=== PATIENT | female | born 1960 | race Caucasian/White ===

== ENCOUNTER 2016-09-26 11:27 | Emergency (ER) | payer OTHER ==
[~2016-09-26] VITALS: Ht 157.5 cm; Wt 85.3 kg
--- NOTE | 2016-09-26 13:48 | ED GENERAL ADULT ---
History of Present Illness General Chief Complaint: General Adult Stated Complaint: PT HEADACHE ,EVERY JOINT IN HER BODY HURTS [id number] Source: patient Exam Limitations: no limitations Vital Signs & Intake/Output Vital Signs & Intake/Output Vital Signs Date Time Temp Pulse Resp B/P Pulse O2 O2 Flow FiO2 Ox Delivery Rate 09/26 1505 96.3 89 24 144/80 96 Room Air 09/26 1154 97.6 86 20 134/77 97 Room Air Allergies Coded Allergies: turkey (FLU LIKE SYMPTOMS FOR DAYS 09/26/16) Reconcile Medications Albuterol Sulfate (Proair Hfa) 90 MCG HFA.AER.AD 1-2 PUF INH Q4-6 PRN PRN COPD (Reported) Budesonide/Formoterol Fumarate (Symbicort 160-4.5 Mcg Inhaler) 160 MCG-4.5 MCG/ ACTUATION HFA.AER.AD 2 PUF INH BID COPD (Reported) Cetirizine HCl (Zyrtec) 10 MG TABLET 1 TAB PO DAILY ALLERGIES (Reported) Liraglutide (Victoza 3-Vu) 0.6 MG/0.1 ML (18 MG/3 ML) PEN.INJCTR 1.8 MG SC DAILY DM (Reported) Metformin HCl 1,000 MG TABLET 1 TAB PO BID DM (Reported) Montelukast Sodium 10 MG TABLET 1 TAB PO QAM ALLERGIES (Reported) Moxifloxacin HCl 400 MG TABLET 1 TAB PO DAILY ANTIBIOTIC (Reported) Multivitamin (Multi-Day Vitamins) 1 EACH TABLET 1 TAB PO DAILY SUPPLEMENT ( Reported) Simvastatin (Simvastatin*) 10 MG TABLET 1 TAB PO QHS CHOLESTEROL (Reported) Tiotropium [place] (Spiriva Respimat) 2.5 MCG/ACTUATION MIST.INHAL 1 PUFF INH DAILY COPD (Reported) Tramadol HCl 50 MG TABLET 1 TAB PO BID PRN PAIN (Reported) Triage Note: TRIAGE: PT TO ER C/C HEADACHE PAIN AND JOINT PAIN X "SEVERAL DAYS". CONSTANT SINCE ONSET. ALSO COMPLAINS OF INTERMITTENT PAIN BETWEEN SHOULDER BLADES AND FEELING TIRED. HAS HAD PRODUCTIVE COUGH WITH GOLDISH COLORED PHLEGM. Triage Nurses Notes Reviewed? yes HPI: Patient is a 56 year old female presents complaining of pulsatile headache, neck pain, diarrhea. Symptoms for approximately one week. Approximately 5 episodes of diarrhea daily. Patient reports any time she eats she has associated diarrhea. Patient has been drinking fluids. Patient was started on Augmentin on September 12 for sinusitis. Patient reports that her primary care provider switched the antibiotic to moxifloxacin approximately one week ago due to the development of diarrhea. Associated generalized weakness. Headache is currently approximately 5 out of 10, generalized weakness/fatigue is severe. Denies fevers Past History Travel History Traveled to [place] past 21 day No Medical History Any Pertinent Medical History? see below for history Neurological: NONE EENT: NONE Cardiovascular: NONE Respiratory: COPD Gastrointestinal: NONE Hepatic: NONE Renal: NONE Musculoskeletal: osteoarthritis Psychiatric: NONE Endocrine: diabetes Blood Disorders: NONE Cancer(s): NONE KENNEL HELPER/Reproductive: NONE Surgical History Surgical History: non-contributory Psychosocial History What is your primary language Peruvian Tobacco Use: Current Daily Use Daily Tobacco Use Amount/Type: => 5 Cigarettes daily ETOH Use: denies use Illicit Drug Use: denies illicit drug use Family History Hx Contributory? No Review of Systems Review of Systems Constitutional: Reports: malaise, weakness. Denies: chills, fever. EENTM: Reports: nasal congestion. Respiratory: Reports: cough, sputum production. Denies: short of breath. Cardiovascular: Denies: chest pain. GI: Reports: diarrhea. Denies: abdominal pain, vomiting. Genitourinary: Reports: no symptoms. Musculoskeletal: Reports: no symptoms. Skin: Reports: no symptoms. Neurological/Psychological: Reports: see HPI. Hematologic/Endocrine: Reports: no symptoms. Immunologic/Allergic: Reports: no symptoms. Physical Exam Physical Exam General Appearance: well developed/nourished, alert, awake Head: atraumatic, normal appearance Eyes: Bilateral: normal appearance, PERRL, EOMI, other (grossly normal fundoscope exam ). Ears, Nose, Throat: normal pharynx, normal ENT inspection, hearing grossly normal Neck: normal inspection, supple, full range of motion Respiratory: normal breath sounds, chest non-tender, no respiratory distress, lungs clear Cardiovascular: regular rate/rhythm Gastrointestinal: soft, non-tender Back: normal inspection, normal range of motion Extremities: normal inspection, normal capillary refill, normal range of motion, no edema Neurologic/Psych: no motor/sensory deficits, awake, alert, oriented x 3, normal gait, normal mood/affect, wash test checker II-XII nml as tested Skin: intact, normal color, warm/dry Lymphatic: no anterior cervical jah Core Measures ACS in differential dx? No CVA/TIA Diagnosis: No Severe Sepsis Present: No Septic Shock Present: No Progress Differential Diagnoses I considered the following diagnoses in my evaluation of the patient: dehydration, tension headache, migraine, intracranial bleed, c. diff infection, colitis, diverticulitis, electrolyte abnormality, sinusitis, pneumonia, bronchitis, viral syndrome. Plan of Care: Orders Procedure Date/time Status CULTURE,STOOL 09/27 1419 Active C.DIFFICILE 09/27 1419 Active COMPREHENSIVE METABOLIC PANEL 09/27 1419 Complete CBC WITHOUT DIFFERENTIAL 09/27 1419 Complete Laboratory Tests 09/26/16 1435: Anion Gap 12, Estimated GFR > 60, BUN/Creatinine Ratio 26.7 H, Glucose 127 H, Calcium 10.5 H, Total Bilirubin 0.4, AST 18, ALT 43, Alkaline Phosphatase 100, Total Protein 6.9, Albumin 4.3, Globulin 2.6, Albumin/Globulin Ratio 1.7, CBC w Diff NO MAN DIFF REQ, RBC 4.49, MCV 89.2, MCH 29.7, RDW 15.1 H, MPV 7.3 L, Gran % 68.2, Lymphocytes % 24.2, Monocytes % 5.6, Eosinophils % 1.8, Basophils % 0.2, Absolute Granulocytes 5.6, Absolute Lymphocytes 2.0, Absolute Monocytes 0.5 , Absolute Eosinophils 0.1, Absolute Basophils 0, PUBS MCHC 33.3 Microbiology 09/27 1419 STOOL: Clostridium difficile Toxin A & B - ORD 09/27 1419 STOOL: Stool Culture - ORD No episodes of diarrhea in the emergency department. Patient afebrile, abdomen soft, nontender. WBC count normal. Lower suspicion C. Diff infection. Results of labs discussed with patient. Appears stable fori discharge and outpatient follow up. (ANUJ LUNA,DONELL) Initial ED EKG: none Departure Departure Disposition: HOME OR SELF CARE Condition: Stable Clinical Impression Primary Impression: Dehydration Secondary Impressions: Diarrhea, Headache Referrals: FARHAT BAUER APRN (PCP/Family) Additional Instructions: Increase your fluid intake. Follow up with your primary care provider this week for further evaluation. Return to the ER if unable to stay hydrated or worsening of symptoms. Departure Forms: Customer Survey General Discharge Information Critical Care Note Critical Care Note Critical Care Time: non-applicable
[2016-09-26 14:41] LABS: ABSOLUTE BASOPHIL COUNT 0 /CUMM (0.0-0.2); ABSOLUTE EOSINOPHIL COUNT 0.1 /CUMM (0.0-0.7); ABSOLUTE GRANULOCYTE CT 5.6 /CUMM (1.4-6.5); ABSOLUTE MONOCYTE COUNT 0.5 /CUMM (0.10-0.60); BASOPHIL % 0.2 % (0.0-2.0); EOSINOPHIL % 1.8 % (0-5); GRANULOCYTE % 68.2 % (42.2-75.2); MEAN CORPUSCULAR HGB 29.7 PG (27.0-31.0); MEAN CORPUSCULAR HGB CONC 33.3 G/DL (33.0-37.0); MEAN CORPUSCULAR VOLUME 89.2 FL (81.0-99.0); MEAN PLATELET VOLUME 7.3 FL (7.4-10.4); PLATELET COUNT 303 /CUMM (130-400); RBC DISTRIBUTION WIDTH 15.1 % (11.5-14.5); RED BLOOD CELL CT 4.49 /CUMM (4.20-5.40); WHITE BLOOD CELL COUNT 8.2 /CUMM (4.8-10.8)
[2016-09-26 15:05] VITALS: BP 144/80
[2016-09-26] MEDS ORDERED: METFORMIN HCL1000 M1 PO (15:35)
[2016-09-26] MEDS ORDERED: SIMVASTATIN10 M1 PO (15:36)
[2016-09-26] MEDS ORDERED: MONTELUKAST SOD10 M1 PO (15:36)
[2016-09-26] MEDS ORDERED: ZYRTEC10 M3 PO (15:36)
[2016-09-26] MEDS ORDERED: MOXIFLOXACIN H400 M2 PO (15:36)
[2016-09-26] MEDS ORDERED: VICTOZA 3-0.6 MG/0.1 SC (15:37)
[2016-09-26] MEDS ORDERED: MULTI-DAY VITA1 EACH PO (15:37)
[2016-09-26] MEDS ORDERED: SYMBICORT 16010.2 GM INH (15:37)
[2016-09-26] MEDS ORDERED: SPIRIVA RESPIMAT4 GM INH (15:38)
[2016-09-26] MEDS ORDERED: TRAMADOL HCL50 M1 PO (15:38)
[2016-09-26] MEDS ORDERED: PROAIR HFA8.5 GM INH (15:39)
== END 2016-09-26 17:28 ==
LOC: ERH 11:27
PROVIDERS: Physician Assistant
DX: E86.0 Dehydration (principal)
CPT/HCPCS: 87045; 96374; J1885

== ENCOUNTER 2016-09-29 08:03 | Emergency (ER) | payer OTHER ==
[~2016-09-29] VITALS: Ht 157.5 cm; Wt 81.6 kg
[~2016-09-29 08:03] MED LIST: METFORMIN HCL1000 M1 PO; MONTELUKAST SOD10 M1 PO; MOXIFLOXACIN H400 M2 PO; MULTI-DAY VITA1 EACH PO; PROAIR HFA8.5 GM INH; SIMVASTATIN10 M1 PO; SPIRIVA RESPIMAT4 GM INH; SYMBICORT 16010.2 GM INH; TRAMADOL HCL50 M1 PO; VICTOZA 3-0.6 MG/0.1 SC; ZYRTEC10 M3 PO
[2016-09-29 10:07] LABS: ABSOLUTE BASOPHIL COUNT 0 /CUMM (0.0-0.2); ABSOLUTE EOSINOPHIL COUNT 0.2 /CUMM (0.0-0.7); ABSOLUTE GRANULOCYTE CT 5.7 /CUMM (1.4-6.5); ABSOLUTE LYMPH COUNT 2.1 /CUMM (1.2-3.4); ABSOLUTE MONOCYTE COUNT 0.5 /CUMM (0.10-0.60); BASOPHIL % 0.5 % (0.0-2.0); EOSINOPHIL % 1.8 % (0-5); HEMATOCRIT 42.7 % (37-47); MEAN CORPUSCULAR HGB CONC 33.9 G/DL (33.0-37.0); MEAN CORPUSCULAR VOLUME 88.3 FL (81.0-99.0); MEAN PLATELET VOLUME 7.3 FL (7.4-10.4); PLATELET COUNT 345 /CUMM (130-400); RBC DISTRIBUTION WIDTH 14.6 % (11.5-14.5); RED BLOOD CELL CT 4.83 /CUMM (4.20-5.40); WHITE BLOOD CELL COUNT 8.5 /CUMM (4.8-10.8)
--- NOTE | 2016-09-29 10:53 | CT SCAN REPORT ---
EXAMINATION: CT ABDOMEN AND PELVIS WITH CONTRAST CLINICAL INFORMATION: 56-year-old female with flulike symptoms, diarrhea and left lower quadrant abdominal pain. Evaluate for diverticulitis or colitis. COMPARISON: CT of abdomen pelvis from 07/18/2016. TECHNIQUE: Multidetector volumetric imaging was performed of the abdomen and pelvis after the IV administration of 95 mL of of Optiray 320 intravenous contrast. Sagittal and coronal reformatted images were obtained on the technologist's workstation. DLP: 691 mGy-cm FINDINGS: LUNG BASES: The visualized lung bases are unremarkable. LIVER, GALLBLADDER, AND BILIARY TREE: Again noted is hepatomegaly and diffuse hepatic steatosis. Gallbladder is surgically absent. No intrahepatic or extrahepatic bile duct dilatation. PANCREAS: Unremarkable. SPLEEN: Unremarkable. ADRENAL GLANDS: Stable 1.3 cm wide nodular focus of the left adrenal gland, characterized as lipid rich adenoma on noncontrast images of 07/18/2016. KIDNEYS AND URETERS: Kidneys are normal in size and enhance symmetrically. There is a 0.7 cm angiomyolipoma at the upper pole of the right kidney. Otherwise, kidneys are unremarkable. No nephrolithiasis or hydroureteronephrosis. BLADDER: Unremarkable. GASTROINTESTINAL TRACT: Stomach is normal. Bowel loops are normal in caliber. No evidence of bowel wall edema. No pericolonic fat stranding. The appendix is not identified. There are no inflammatory changes within the right lower quadrant. No ascites or pneumoperitoneum. ABDOMINAL WALL: Small, 1 cm wide fat-containing hernia of the umbilicus is unchanged. LYMPH NODES: No pathologic sized lymph nodes within the abdomen or pelvis. VASCULAR: Atherosclerotic calcification of the abdominal aorta without aneurysm. The celiac trunk, SMA, CLAUDIA and renal arteries are widely patent. No retroperitoneal hematoma. PELVIC VISCERA: The anteflexed uterus is normal in size. 1.2 cm nearly isodense intramural leiomyoma of the right uterine body is suspected. No adnexal mass. Tubal ligation clips/rings are noted. No pelvic free fluid. OSSEOUS STRUCTURES: At L5-S1, there is facet osteoarthritis (left worse than right), disc bulge and 0.3 cm anterolisthesis of L5 on S1. No suspicious bone lesions. Bone island is present within the left pubis. IMPRESSION: 1. No acute findings along the gastrointestinal tract. No evidence of enteritis or colitis. 2. Hepatomegaly and diffuse hepatic steatosis. 3. Small angiomyolipoma at the upper pole of the right kidney. 4. Stable 1.3 cm wide nodular focus of the left adrenal gland is compatible with an adrenal adenoma.
[2016-09-29 11:21] VITALS: BP 138/67
[2016-09-29] MEDS ORDERED: SULINDAC150 M1 PO (11:31)
[2016-09-29] MEDS ORDERED: PROMETHAZINE HC25 M3 PO (11:31)
--- NOTE | 2016-09-29 11:32 | ED INFLUENZA/URI COMPLAINT ---
History of Present Illness General Chief Complaint: General Adult Stated Complaint: HEAD ACHE, MUSCLE ACHE, NAUSEA Source: patient Exam Limitations: no limitations Vital Signs & Intake/Output Vital Signs & Intake/Output Vital Signs Date Time Temp Pulse Resp B/P Pulse O2 O2 Flow FiO2 Ox Delivery Rate 09/29 1121 97.7 82 18 138/67 92 Room Air 09/29 0812 97.4 94 16 145/83 96 Room Air Allergies Coded Allergies: turkey (FLU LIKE SYMPTOMS FOR DAYS 09/26/16) Reconcile Medications Albuterol Sulfate (Proair Hfa) 90 MCG HFA.AER.AD 1-2 PUF INH Q4-6 PRN PRN COPD (Reported) Budesonide/Formoterol Fumarate (Symbicort 160-4.5 Mcg Inhaler) 160 MCG-4.5 MCG/ ACTUATION HFA.AER.AD 2 PUF INH BID COPD (Reported) Cetirizine HCl (Zyrtec) 10 MG TABLET 1 TAB PO DAILY ALLERGIES (Reported) Liraglutide (Victoza 3-Vu) 0.6 MG/0.1 ML (18 MG/3 ML) PEN.INJCTR 1.8 MG SC DAILY DM (Reported) Metformin HCl 1,000 MG TABLET 1 TAB PO BID DM (Reported) Montelukast Sodium 10 MG TABLET 1 TAB PO QAM ALLERGIES (Reported) Moxifloxacin HCl 400 MG TABLET 1 TAB PO DAILY ANTIBIOTIC (Reported) Multivitamin (Multi-Day Vitamins) 1 EACH TABLET 1 TAB PO DAILY SUPPLEMENT ( Reported) Promethazine HCl 25 MG TABLET 1 TAB PO Q6P PRN NAUSEA/VOMITING Simvastatin (Simvastatin*) 10 MG TABLET 1 TAB PO QHS CHOLESTEROL (Reported) Sulindac 150 MG TABLET 1 TAB PO BID PRN HEADACHE OR MUSCLE ACHES Tiotropium [place] (Spiriva Respimat) 2.5 MCG/ACTUATION MIST.INHAL 1 PUFF INH DAILY COPD (Reported) Tramadol HCl 50 MG TABLET 1 TAB PO BID PRN PAIN (Reported) Triage Note: PT SENT IN BY PCP FOR MUSCLE ACHES DO AND DIARRHEA ON SUNDAY. PT STATES SHE HAS DIARRHEA ON AND OFF SINCE THEN. PT WAS GIVEN IV FOR DEHYDRATION 2 DAYS AGO. Triage Nurses Notes Reviewed? yes HPI: Patient presents for evaluation of headache and muscle aches nausea and "a lot" of diarrhea since before Sunday. Patient states she was evaluated on Jennifer and treated for dehydration but has been unable to see her primary care physician since. She denies fever or cold symptoms but did have chills last night. She denies chest pain or dyspnea or dysuria or rashes. She likewise denies ill contacts or recent travel. There has been no blood in her diarrhea. Symptoms are described as moderate to severe and debilitating. Nothing seems to make her feel better. Past History Travel History Traveled to [place] past 21 day No Medical History Any Pertinent Medical History? see below for history Neurological: NONE EENT: NONE Cardiovascular: NONE Respiratory: COPD Gastrointestinal: NONE Hepatic: NONE Renal: NONE Musculoskeletal: osteoarthritis Psychiatric: NONE Endocrine: diabetes Blood Disorders: NONE Cancer(s): NONE SALAD CHEF/Reproductive: NONE Surgical History Surgical History: non-contributory Psychosocial History What is your primary language Taiwanese Tobacco Use: Current Daily Use Daily Tobacco Use Amount/Type: => 5 Cigarettes daily ETOH Use: denies use Illicit Drug Use: denies illicit drug use Family History Hx Contributory? No Review of Systems Review of Systems Constitutional: Reports: no symptoms. EENTM: Reports: no symptoms. Respiratory: Reports: no symptoms. Cardiovascular: Reports: no symptoms. GI: Reports: see HPI. Genitourinary: Reports: no symptoms. Musculoskeletal: Reports: no symptoms. Skin: Reports: no symptoms. Neurological/Psychological: Reports: no symptoms. Hematologic/Endocrine: Reports: no symptoms. Immunologic/Allergic: Reports: no symptoms. All Other Systems: Reviewed and Negative Physical Exam Physical Exam Ears, Nose, Throat: SEE BELOW Comments: Gen.: Well-nourished, well-developed, no acute respiratory distress. Head: Normocephalic, atraumatic. Eyes: Normal inspection bilaterally Ears: Normal inspection bilaterally Nose: Normal inspection Throat/mouth : Moist mucosa Neck: Supple, full range of motion, no goiter Heart: Regular rate and rhythm, no murmurs rubs or gallops Lungs: Clear to auscultation bilaterally with normal air entry Chest: Nontender Back: Normal range of motion Abdomen: Soft, left lower quadrant tenderness with voluntary guarding but no rebound, nondistended, normal bowel sounds Extremities: Normal range of motion grossly, equal radial pulses, no cyanosis clubbing or edema Neurologic: Cranial nerves grossly intact, speech is clear Skin: warm and dry Psychiatric: Calm, cooperative, no apparent delusions or hallucinations Core Measures Severe Sepsis Present: No Septic Shock Present: No Progress Differential Diagnosis: INFLUENZA, VIRAL SYNDROME, COLITIS Plan of Care: Orders Procedure Date/time Status HIGH SENSITIVITY CRP 09/29 0850 Complete WESTERGREN SED RATE 09/29 0850 Complete CBC WITHOUT DIFFERENTIAL 09/29 949 Complete BASIC METABOLIC PANEL 09/29 949 Complete Laboratory Tests 09/29/16 1001: Anion Gap 15, Estimated GFR > 60, BUN/Creatinine Ratio 18.3, Glucose 137 H, Calcium 10.7 H, C-React Prot High Sens 8.3 H, CBC w Diff NO MAN DIFF REQ, RBC 4.83, MCV 88.3, MCH 30.0, RDW 14.6 H, MPV 7.3 L, Gran % 67.0, Lymphocytes % 25.0, Monocytes % 5.7, Eosinophils % 1.8, Basophils % 0.5, Absolute Granulocytes 5.7, Absolute Lymphocytes 2.1, Absolute Monocytes 0.5, Absolute Eosinophils 0.2, Absolute Basophils 0, PUBS MCHC 33.9, ESR Westergren 15 Initial ED EKG: none Comments: 09/29/2016 11:23:50 AM patient signed out to me by Dr. Plaza at shift global director air and climate change. I have updated Josselin on her test results. She will follow-up with primary care physician for further evaluation and treatment on Sunday. Plan symptomatic care in the meantime. Departure Departure Disposition: HOME OR SELF CARE Condition: Stable Clinical Impression Primary Impression: Diarrhea Qualifiers: Diarrhea type: unspecified type Qualified Code: R19.7 - Diarrhea, unspecified Secondary Impressions: Adrenal adenoma Qualifiers: Laterality: left Qualified Code: D35.02 - Benign neoplasm of left adrenal gland Referrals: FARHAT BAUER APRN (PCP/Family) Additional Instructions: Phenergan as needed for nausea or vomiting. Ibuprofen as needed for headache or muscle aches. Maintained a good fluid intake. Follow-up with your primary care physician on Sunday. I will CAT scan shows an incidental left adrenal adenoma seen previously. This appears to be unchanged. YOUR Primary care physician might need to monitor this in the future. Return if any concerns or sudden worsening. Please note that there might be incidental findings in your evaluation that are unrelated to the current emergency department visit. Please notify your primary care doctor about this emergency department visit in order to obtain and review all of the testing performed so that these incidental findings can be monitored as needed. If you had an x-ray performed, please understand that some fractures may not be seen on the initial set of x-rays. If your symptoms persist you might need a repeat set of x-rays to check for such a fracture. If you had a laceration evaluated, please understand that foreign bodies such as glass or wood may not be visible to the naked eye or on plain x-rays. If the wound becomes red, swollen, increasingly more painful or if there is any drainage from the wound, please have it reevaluated by a physician for the possibility of a retained foreign body. Thank you for choosing the [facility] Emergency Department for your care. It was a pleasure to serve you today. Jasvir Meza M.D. [facility] Departure Forms: Customer Survey General Discharge Information Prescriptions: Current Visit Scripts Promethazine HCl 1 TAB PO Q6P PRN NAUSEA/VOMITING #12 TAB Sulindac 1 TAB PO BID PRN HEADACHE OR MUSCLE ACHES #10 TAB
== END 2016-09-29 11:45 ==
LOC: ERH 08:03
PROVIDERS: Emergency Medicine
DX: D35.00 Benign neoplasm of unspecified adrenal gland (principal); R19.7 Diarrhea, unspecified
CPT/HCPCS: 74177; 96372; J2550